=== PATIENT | female | born 1995 | race African-American/Black ===

== ENCOUNTER 2019-02-26 22:33 | Emergency (ER) | payer SELFPAY ==
[~2019-02-26] VITALS: Ht 160 cm; Wt 102.0 kg
[2019-02-26] MEDS ORDERED: ONDANSETRON HCL 4MG/2ML INJ IV STA (23:51)
[2019-02-26] MEDS ORDERED: SODIUM CHLORIDE 0.9% 1,000 ML IV ONE (23:51)
[2019-02-27] MEDS ORDERED: LORAZEPAM 2MG/ML CPJ IV ONE (00:15)
[2019-02-27 00:39] LABS: BASOPHILS % 0.8 % (0.0-2.0); EOSINOPHILS % 1.9 % (0.0-5.0); HEMATOCRIT. 33.1 % (36.0-48.0); HEMOGLOBIN. 10.6 g/dL (12.0-16.0); LYMPHOCYTES % 17.9 % (20.0-50.0); MEAN CORPUSCULAR HEMOGLOBIN 25.5 pg (28.0-32.0); MEAN CORPUSCULAR VOLUME 79.2 fL (81.0-99.0); MEAN PLATELET VOLUME 7.7 fl (7.4-10.4); MONOCYTES % 11.6 % (2.0-8.0); NEUTROPHILS % 67.8 % (40.0-76.0); PLATELET 294 x1000/uL (130-400); RED BLOOD CELL COUNT 4.18 mill/uL (4.2-5.4); RED CELL DISTRIBUTION WIDTH 15.5 % (11.6-14.6)
[2019-02-27 00:45] LABS: CHLORIDE 109 mEq/L (98-107)
[2019-02-27 00:47] LABS: HCG SCREEN NEGATIVE
[2019-02-27 00:48] LABS: ETHANOL BLOOD < 10 mg/dL
[2019-02-27] MEDS ORDERED: POTASSIUM CHLORIDE 20MEQ TABLET SR PO ONE (01:15)
[2019-02-27 09:15] LABS: *AMPHETAMINES SCREEN URINE NEGATIVE (NEGATIVE); *BARBITURATES SCREEN URINE NEGATIVE (NEGATIVE)
[2019-02-27 09:17] LABS: *BENZODIAZEPINES SCREEN URINE NEGATIVE (NEGATIVE); *COCAINE SCREEN URINE NEGATIVE (NEGATIVE); OPIATES URINE SCREEN NEGATIVE (NEGATIVE); PHENCYCLIDINE URINE SCREEN NEGATIVE (NEGATIVE)
[2019-02-27 09:23] LABS: METHADONE URINE SCREEN NEGATIVE (NEGATIVE)
[2019-02-27 09:26] LABS: CANNABINOID URINE SCREEN PRESUMTIVE POSITIVE (NEGATIVE)
[2019-02-27 09:42] VITALS: BP 124/63
== END 2019-02-27 09:50 | disposition home or self-care (01) ==
LOC: ER 22:33
DX: F12.129 Cannabis abuse with intoxication, unspecified (principal); Z88.0 Allergy status to penicillin
CPT/HCPCS: 36415; 80053; 80305; 80320; 83690; 84484; 84703; 85025; 93005; 96361; 96374; 96375; 99284; J2060; J2405; J7030; Z7610; G0480